=== PATIENT | female | born 1985 | race Caucasian/White ===

== ENCOUNTER → 2016-06-18 | Outpatient (CLI) | payer BC ==
[~2016-06-18] MED LIST: AZIT250T6 PO; BENZ100C97 PO; NORG1TAB54 PO; OSEL75CA PO
== END ==
LOC: IMA 09:48
PROVIDERS: ATTEND Family Medicine
DX: N64.59 Other signs and symptoms in breast (principal)
CPT/HCPCS: 76642; 77061; G0206